=== PATIENT | male | born 1965 | race Caucasian/White ===

== ENCOUNTER 2018-12-25 12:56 | Emergency (ER) | payer OTHER ==
[~2018-12-25] VITALS: Ht 182.9 cm; Wt 108.9 kg
--- NOTE | 2018-12-25 13:26 | PHYS DOC ---
Past History Past Medical History: Alcoholism, Bipolar, Depression, Hypertension, Hepatitis (C) Additional Past Medical Histor: DJD, Chronic back pain, PTSD Past Surgical History: Appendectomy Additional Past Surgical Histo: B knee, R shoulder, lumbar spine Smoking: Non-smoker Alcohol Use: Heavy Drug Use: None Adult General Chief Complaint Chief Complaint: NAUSEA/VOMITING/DIARRHEA HPI HPI Patient is a 53 year old male who presents with 5 days of intractable vomiting. He has not been able to keep food or drink down and attempts at eating or drinking triggers his vomiting. He typically consumes a pint a day of alcohol and stopped drinking the day before onset and attributes his current symptoms to alcohol withdrawal. He denies history of withdrawal seizures or hallucinations. Patient reports tremors, diaphoresis, and rapid heart rate for last few days which are slowly improving. He was hospitalized 2-3 weeks ago for similar symptoms associated with alcohol withdraw. He will binge drink for a few weeks at a time and then make an attempt to abstain for a week or so. Patient reports it has also been about a week since his last [place] dose of which he ran out of. He currently is scheduled for EGD on 12/31/18. [facility]. Review of Systems Review of Systems Constitutional: Denies fever or chills [] Eyes: Denies change in visual acuity, redness, or eye pain [] HENT: Denies nasal congestion or sore throat [] Respiratory: Denies cough or shortness of breath [] GI: Reports nausea and vomiting, denies abdominal pain [] : Denies dysuria or hematuria [] Musculoskeletal: Denies back pain or joint pain [] Integument: Denies rash or skin lesions [] Complete systems were reviewed and found to be within normal limits, except as documented in this note. Current Medications Current Medications Current Medications Medications (Trade) Dose Ordered Sig/Iain Start Time Stop Time Status Last Admin Dose Admin Famotidine (Pepcid Vial) 20 mg 1X ONCE 12/25/18 13:15 12/25/18 13:16 UNV Iohexol (Omnipaque 300 Mg/ml) 75 ml 1X ONCE 12/25/18 13:15 12/25/18 13:16 UNV Lorazepam (Ativan) 1 mg 1X ONCE 12/25/18 13:15 12/25/18 13:16 UNV Multivitamins/ Minerals 10 ml/ Folic Acid 1 mg/ Thiamine HCl 100 mg/Sodium Chloride 1,011.1 ml @ 1,000 mls/ hr 1X ONCE 12/25/18 13:15 12/25/18 14:15 UNV Ondansetron HCl (Zofran) 4 mg 1X ONCE 12/25/18 13:15 12/25/18 13:16 UNV Physical Exam Physical Exam Constitutional: Well developed, well nourished, diaphoretic, flushed in the face. [] HENT: Normocephalic, atraumatic, poor dentition, oropharynx dry. [] Eyes: EOMI, conjunctiva normal, no discharge. [] Neck: Normal range of motion, no tenderness, no JVD. [] Cardiovascular: Regular rhythm, tachycardic, no murmur [] Lungs & Thorax: Bilateral breath sounds clear to auscultation [] Abdomen: Soft, no tenderness Skin: Warm, dry, no rash. [] Extremities: No tenderness,moves all, no edema [] Neurologic: Alert and oriented X 3, normal motor function, normal sensory function, no focal deficits noted, tremors in hands [] Psychologic: Affect normal, judgement normal, mood normal. [] EKG EKG @1321 Sinus tachycardia at 113bpm, significant baseline artifact due to tremulousness worse to I, III, aVL and aVF, NO ST elevation Radiology/Procedures Radiology/Procedures PROCEDURE: CT ABD PELV W/ IV CONTRST ONLY CT of the abdomen and pelvis with contrast, 12/25/2018: HISTORY: Abdominal pain, nausea and vomiting Multidetector CT imaging was performed following an IV bolus injection of iodinated contrast material. No oral contrast material was administered for this study. The gallbladder is surgically absent. The liver is of lower than normal density suggesting fatty change. No hepatic mass or bile duct dilatation is evident. The pancreas is unremarkable. The spleen shows no abnormality. There is mild left renal cortical scarring. The kidneys show no evidence of obstruction or mass. No adrenal abnormality is detected. The abdominal aorta is unremarkable. No abdominal or pelvic adenopathy is seen. The prostate gland is at the upper limits of normal in size. Multiple colonic diverticula are present. These are most numerous in the sigmoid region. No paracolonic inflammatory process is seen. The bowel loops are not dilated. The appendix is not visualized. No dilated appendix or pericecal inflammatory process is seen. No free fluid or free air is evident in the abdomen or pelvis. A small fat-containing umbilical hernia is noted. Moderate multilevel degenerative change is present in the lower lumbar spine. IMPRESSION: 1. Moderate colonic diverticulosis. 2. Hepatic steatosis. 3. No acute abdominal or pelvic abnormality is detected. PQRS Compliance Statement: One or more of the following individualized dose reduction techniques were utilized for this examination: 1. Automated exposure control 2. Adjustment of the mA and/or kV according to patient size 3. Use of iterative reconstruction technique Electronically signed by: John Landrum MD (12/25/2018 2:18 PM) [facility] Course & Med Decision Making Course & Med Decision Making Pertinent Labs and Imaging studies reviewed. (See chart for details) Shobonier with pmh of ETOH abuse presents with HPI and physical exam concerning for ETOH withdrawal. Tremulousness noted. Symptomatic treatment provided. Labs obtained and posted to chart. Potassium replacement initiated. BUN/Creat elevated. IVF hydration given. CT abd/pelvis without acute process. Patient requiring admission for further evaluation and treatment. Patient requests transfer to [place] [facility]. [facility]. Discussed findings and plan with patient, who acknowledges understanding and agreement. Dragon Disclaimer Dragon Disclaimer This electronic medical record was generated, in whole or in part, using a voice recognition dictation system. Departure Departure: Impression: Primary Impression: Alcohol withdrawal Additional Impressions: Hypokalemia Acute renal insufficiency Disposition: 05 TRANSFER OTHER ([facility]) Condition: STABLE Referrals: PCP,NO (PCP) Problem Qualifiers Primary Impression: Alcohol withdrawal Complication of substance-induced condition: uncomplicated Qualified Codes: F10.230 - Alcohol dependence with withdrawal, uncomplicated DAVID BUSTAMANTE DO Dec 25, 2018 13:26
--- NOTE | 2018-12-25 13:26 | EKG ---
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
[2018-12-25] MEDS ORDERED: ONDANSETRON PF 4 MG/2 ML VIAL. IV ONE ×2 (13:30→14:15)
[2018-12-25] MEDS ORDERED: IOHEXOL 300 MG/ML 75 ML VIAL. IV ONE (13:30)
[2018-12-25] MEDS ORDERED: FAMOTIDINE 20 MG/2 ML VIAL IVP ONE (13:30)
[2018-12-25 13:42] LABS: BASO # 0.1 x10^3/uL (0.0-0.2); BASO % 1 % (0-3); EOS % 0 % (0-3); HEMATOCRIT 53.5 % (39.0-53.0); HEMOGLOBIN 18.2 g/dL (13.0-17.5); LYMPH % 12 % (24-48); MEAN CORPUSCULAR HEMOGLOBIN 32 pg (25-35); MEAN CORPUSCULAR HGB CONC 34 g/dL (31-37); MEAN CORPUSCULAR VOLUME 93 fL (79-100); MONO # 1.4 x10^3/uL (0.0-1.1); MONO % 17 % (0-9); NEUT # 5.9 x10^3uL (1.8-7.7); NEUT % 70 % (31-73); PLATELET COUNT 113 x10^3/uL (140-400); RED BLOOD COUNT 5.76 x10^6/uL (4.30-5.70); RED CELL DISTRIBUTION WIDTH 15.5 % (11.5-14.5); WHITE BLOOD COUNT 8.4 x10^3/uL (4.0-11.0)
[2018-12-25] MEDS ORDERED: MVI, ADULT NO.4 WITH VIT K 10 ML, FOLIC ACID SYRINGE for ER 1 MG, THIAMINE INJ 100 MG i... IV ONE ×4 (13:45)
[2018-12-25 14:04] LABS: ALBUMIN 4.4 g/dL (3.4-5.0); ALBUMIN/GLOBULIN RATIO 0.9 (1.0-1.7); CALCIUM 10.2 mg/dL (8.5-10.1); CREATININE 2.9 mg/dL (0.7-1.3); MAGNESIUM 2.4 mg/dL (1.8-2.4); TOTAL BILIRUBIN 2.3 mg/dL (0.2-1.0); TOTAL PROTEIN 9.4 g/dL (6.4-8.2)
[2018-12-25 14:07] LABS: POTASSIUM 2.5 mmol/L (3.5-5.1)
--- NOTE | 2018-12-25 14:21 | RAD ---
CT of the abdomen and pelvis with contrast, 12/25/2018: HISTORY: Abdominal pain, nausea and vomiting Multidetector CT imaging was performed following an IV bolus injection of iodinated contrast material. No oral contrast material was administered for this study. The gallbladder is surgically absent. The liver is of lower than normal density suggesting fatty change. No hepatic mass or bile duct dilatation is evident. The pancreas is unremarkable. The spleen shows no abnormality. There is mild left renal cortical scarring. The kidneys show no evidence of obstruction or mass. No adrenal abnormality is detected. The abdominal aorta is unremarkable. No abdominal or pelvic adenopathy is seen. The prostate gland is at the upper limits of normal in size. Multiple colonic diverticula are present. These are most numerous in the sigmoid region. No paracolonic inflammatory process is seen. The bowel loops are not dilated. The appendix is not visualized. No dilated appendix or pericecal inflammatory process is seen. No free fluid or free air is evident in the abdomen or pelvis. A small fat-containing umbilical hernia is noted. Moderate multilevel degenerative change is present in the lower lumbar spine. IMPRESSION: 1. Moderate colonic diverticulosis. 2. Hepatic steatosis. 3. No acute abdominal or pelvic abnormality is detected. PQRS Compliance Statement: One or more of the following individualized dose reduction techniques were utilized for this examination: 1. Automated exposure control 2. Adjustment of the mA and/or kV according to patient size 3. Use of iterative reconstruction technique Electronically signed by: John Landrum MD (12/25/2018 2:18 PM) [facility]
[2018-12-25] MEDS: POTASSIUM CHLORIDE 10MEQ 50 ML IV SCH ×2 (15:11→15:59)
[2018-12-25 15:45] VITALS: BP 126/105
== END 2018-12-25 16:45 | disposition short-term general hospital (02) ==
LOC: ER 12:56
DX: K57.30 Diverticulosis of large intestine without perforation or abscess without bleeding (principal); K76.0 Fatty (change of) liver, not elsewhere classified; R11.2 Nausea with vomiting, unspecified; F10.20 Alcohol dependence, uncomplicated; Y90.0 Blood alcohol level of less than 20 mg/100 ml
CPT/HCPCS: 36415; 74177; 80053; 80178; 82553; 83690; 83735; 84484; 85025; 85610; 85730; 93005; 96361; 96365; 96366; 96375; 96376; 99285; G0480; J2060; J2405; J3480; J3490; Q9967; J7030

== ENCOUNTER 2019-01-19 12:56 | Emergency (ER) | payer OTHER ==
[~2019-01-19] VITALS: Ht 182.9 cm; Wt 105.0 kg
[2019-01-19] MEDS ORDERED: ONDANSETRON PF 4 MG/2 ML VIAL. ONE (13:02)
[2019-01-19] MEDS ORDERED: THIAMINE 200 MG/2 ML VIAL. IV ONE (13:07)
[2019-01-19] MEDS ORDERED: MVI, ADULT NO.4 WITH VIT K 10 ML VIAL IV ONE (13:08)
[2019-01-19] MEDS ORDERED: FOLIC ACID 5 MG/ML SYRINGE for ER IV ONE (13:08)
[2019-01-19 13:30] LABS: BASO % 0 % (0-3); EOS % 0 % (0-3); HEMATOCRIT 52.9 % (39.0-53.0); HEMOGLOBIN 17.8 g/dL (13.0-17.5); LYMPH # 0.7 x10^3/uL (1.0-4.8); LYMPH % 7 % (24-48); MEAN CORPUSCULAR HEMOGLOBIN 32 pg (25-35); MEAN CORPUSCULAR HGB CONC 34 g/dL (31-37); MEAN CORPUSCULAR VOLUME 94 fL (79-100); MONO # 0.7 x10^3/uL (0.0-1.1); MONO % 7 % (0-9); NEUT # 8.4 x10^3uL (1.8-7.7); NEUT % 86 % (31-73); PLATELET COUNT 66 x10^3/uL (140-400); RED BLOOD COUNT 5.66 x10^6/uL (4.30-5.70); RED CELL DISTRIBUTION WIDTH 15.3 % (11.5-14.5); WHITE BLOOD COUNT 9.8 x10^3/uL (4.0-11.0)
[2019-01-19] MEDS ORDERED: ONDANSETRON PF 4 MG/2 ML VIAL. IV ONE (13:30)
[2019-01-19] MEDS ORDERED: FAMOTIDINE 20 MG/2 ML VIAL IVP ONE (13:30)
[2019-01-19] MEDS ORDERED: MVI, ADULT NO.4 WITH VIT K 10 ML, FOLIC ACID SYRINGE for ER 1 MG, THIAMINE INJ 100 MG i... IV SCH ×4 (13:30)
--- NOTE | 2019-01-19 13:36 | RAD ---
AP chest. HISTORY: Nausea and vomiting, dizziness AP view was taken of the chest. There is evidence of old surgery at the right shoulder. There is arthritis in both AC joints. Lungs are free of acute infiltrates. Heart is normal in size without heart failure. There is no effusion. IMPRESSION: 1. No acute infiltrates. Electronically signed by: Olayinka Thorne MD (01/19/2019 1:33 PM) [facility]
--- NOTE | 2019-01-19 13:39 | PHYS DOC ---
Past History Past Medical History: Alcoholism, Bipolar, Depression, Hypertension, Liver Disease, Other Additional Past Medical Histor: DJD, Chronic back pain, PTSD Past Surgical History: Cholecystectomy Additional Past Surgical Histo: B knee, R shoulder, lumbar spine Smoking: Non-smoker Alcohol Use: Heavy Drug Use: None Adult General Chief Complaint Chief Complaint: WITHDRAWL HPI HPI Patient is a 53 year old male who presents with complaint of dizziness, nausea, and vomiting. Patient states that his symptoms have been present over the past 2 days. Patient notes that he has history of heavy alcohol use. Patient states that he stopped drinking 2 days ago and started developing symptoms shortly after he stopped drinking alcohol. States he usually drinks approximately 1 pint of whiskey daily. Has had prior episodes of alcohol withdrawal requiring treatment in the hospital setting. States that he normally gets treatment at the [facility]. Patient brought by EMS who was diverted to [facility] from the [place] due to the patient having significant tachycardia. Denies chest pain currently. Does admit to feeling short of breath and feeling anxious. Review of Systems Review of Systems Constitutional: Denies fever or chills [] Eyes: Denies change in visual acuity, redness, or eye pain [] HENT: Denies nasal congestion or sore throat [] Respiratory: Shortness of breath[] Cardiovascular: Dizziness, denies chest pain[] GI: Denies abdominal pain, nausea, vomiting, bloody stools or diarrhea [] : Denies dysuria or hematuria [] Musculoskeletal: Denies back pain or joint pain [] Integument: Denies rash or skin lesions [] Neurologic: Denies headache, focal weakness or sensory changes [] All other systems were reviewed and found to be within normal limits, except as documented in this note. Current Medications Current Medications Current Medications Medications (Trade) Dose Ordered Sig/Iain Start Time Stop Time Status Last Admin Dose Admin Famotidine (Pepcid Vial) 20 mg 1X ONCE 01/19/19 13:30 01/19/19 13:31 01/19/19 13:10 20 MG Folic Acid (FOLIC ACID SYRINGE for ER) 5 mg STK-MED ONCE 01/19/19 13:08 01/19/19 13:09 DC Lorazepam (Ativan) 2 mg 1X ONCE 01/19/19 13:30 01/19/19 13:31 01/19/19 13:10 2 MG Multivitamins/ Minerals (Infuvite Adult) 10 ml STK-MED ONCE 01/19/19 13:08 01/19/19 13:09 DC Multivitamins/ Minerals 10 ml/ Folic Acid 1 mg/ Thiamine HCl 100 mg/Sodium Chloride 1,011.2 ml @ 1,000 mls/ hr Q1H 01/19/19 13:30 01/19/19 13:16 1,000 MLS/HR Ondansetron HCl (Zofran) 4 mg 1X ONCE 01/19/19 13:30 01/19/19 13:31 01/19/19 13:10 4 MG Thiamine HCl (Thiamine Vial) 200 mg STK-MED ONCE 01/19/19 13:07 01/19/19 13:08 DC Allergies Allergies Allergies Coded Allergies Type Severity Reaction Last Updated Verified latex Allergy Unknown 12/25/18 Yes Physical Exam Physical Exam Constitutional: Well developed, well nourished, appears anxious, cooperative. [] HENT: Normocephalic, atraumatic, bilateral external ears normal, oropharynx moist, no oral exudates, nose normal. [] Eyes: PERRLA, EOMI, conjunctiva normal, no discharge. [] Neck: Normal range of motion, no tenderness, supple, no stridor. [] Cardiovascular: Tachycardia, regular rhythm, no murmur [] Lungs & Thorax: Bilateral breath sounds clear to auscultation [] Abdomen: Bowel sounds normal, soft, no tenderness, no masses, no pulsatile masses. [] Skin: Warm, dry, no erythema, no rash. [] Back: No tenderness, no CVA tenderness. [] Extremities: No tenderness, no cyanosis, no clubbing, ROM intact, no edema. [] Neurologic: Alert and oriented X 3, normal motor function, normal sensory function, no focal deficits noted. [] Current Patient Data Vital Signs Vital Signs Date Time Temp Pulse Resp B/P (MAP) Pulse Ox O2 Delivery O2 Flow Rate FiO2 01/19/19 12:57 148 22 Room Air Lab Results Laboratory Tests Test 01/19/19 13:01 01/19/19 13:40 White Blood Count 9.8 x10^3/uL Red Blood Count 5.66 x10^6/uL Hemoglobin 17.8 g/dL Hematocrit 52.9 % Mean Corpuscular Volume 94 fL Mean Corpuscular Hemoglobin 32 pg Mean Corpuscular Hemoglobin Concent 34 g/dL Red Cell Distribution Width 15.3 % Platelet Count 66 x10^3/uL Neutrophils (%) (Auto) 86 % Lymphocytes (%) (Auto) 7 % Monocytes (%) (Auto) 7 % Eosinophils (%) (Auto) 0 % Basophils (%) (Auto) 0 % Neutrophils # (Auto) 8.4 x10^3uL Lymphocytes # (Auto) 0.7 x10^3/uL Monocytes # (Auto) 0.7 x10^3/uL Eosinophils # (Auto) 0.0 x10^3/uL Basophils # (Auto) 0.0 x10^3/uL Sodium Level 151 mmol/L Potassium Level 3.4 mmol/L Chloride Level 96 mmol/L Carbon Dioxide Level 22 mmol/L Anion Gap 33 Blood Urea Nitrogen 34 mg/dL Creatinine 3.6 mg/dL Estimated GFR (Cockcroft-Gault) 17.9 Glucose Level 151 mg/dL Calcium Level 11.7 mg/dL Magnesium Level 1.7 mg/dL Total Bilirubin 1.3 mg/dL Direct Bilirubin 0.5 mg/dL Aspartate Amino Transf (AST/SGOT) 134 U/L Alanine Aminotransferase (ALT/SGPT) 183 U/L Alkaline Phosphatase 98 U/L Total Protein 9.8 g/dL Albumin 4.9 g/dL Ethyl Alcohol Level < 10 mg/dL Prothrombin Time 10.0 SEC Prothromb Time International Ratio 1.0 Activated Partial Thromboplast Time 24 SEC Current Medications Medications (Trade) Dose Ordered Sig/Iain Route PRN Reason Start Time Stop Time Status Last Admin Dose Admin Ondansetron HCl (Zofran) 4 mg STK-MED ONCE .ROUTE 01/19/19 13:02 01/19/19 13:03 DC Lorazepam (Ativan) 2 mg STK-MED ONCE .ROUTE 01/19/19 13:02 01/19/19 13:03 DC Famotidine (Pepcid Vial) 20 mg 1X ONCE IVP 01/19/19 13:30 01/19/19 13:31 DC 01/19/19 13:10 Ondansetron HCl (Zofran) 4 mg 1X ONCE IV 01/19/19 13:30 01/19/19 13:31 DC 01/19/19 13:10 Lorazepam (Ativan) 2 mg 1X ONCE IV 01/19/19 13:30 01/19/19 13:31 DC 01/19/19 13:10 Multivitamins/ Minerals 10 ml/ Folic Acid 1 mg/ Thiamine HCl 100 mg/Sodium Chloride 1,011.2 ml @ 1,000 mls/ hr Q1H IV 01/19/19 13:30 01/19/19 13:30 DC 01/19/19 13:16 Thiamine HCl (Thiamine Vial) 200 mg STK-MED ONCE IV 01/19/19 13:07 01/19/19 13:08 DC Multivitamins/ Minerals (Infuvite Adult) 10 ml STK-MED ONCE IV 01/19/19 13:08 01/19/19 13:09 DC Folic Acid (FOLIC ACID SYRINGE for ER) 5 mg STK-MED ONCE IV 01/19/19 13:08 01/19/19 13:09 DC Diltiazem HCl (Cardizem Iv Push) 10 mg 1X ONCE IVP 01/19/19 14:15 01/19/19 14:16 DC EKG EKG Interpreted by me: Heart rate 151, A. fib with RVR, no acute ST elevations or depressions[] Radiology/Procedures Radiology/[place] [address] IMAGING REPORT Signed PATIENT: CATHERINE JON ACCOUNT: [id number] : 1965 LOCATION: ER AGE: 53 SEX: M EXAM STATUS: REG ER ORD. PHYSICIAN: BYRON KING MD REASON: Nausea, vomiting, dizziness PROCEDURE: PORTABLE CHEST 1V AP chest. HISTORY: Nausea and vomiting, dizziness AP view was taken of the chest. There is evidence of old surgery at the right shoulder. There is arthritis in both AC joints. Lungs are free of acute infiltrates. Heart is normal in size without heart failure. There is no effusion. IMPRESSION: 1. No acute infiltrates. Electronically signed by: Olayinka Thorne MD (01/19/2019 1:33 PM) [facility] DICTATED AND SIGNED BY: OLAYINKA THORNE MD DATE: 01/19/19 9201 CC: BYRON KING MD; PCP,NO ~ [] Course & Med Decision Making Course & Med Decision Making Pertinent Labs and Imaging studies reviewed. (See chart for details) Patient was started on IV fluids including banana bag and was also administered Zofran and IV lorazepam. Patient lab work shows that he is significantly volume depleted. Patient also appears to have worsening renal failure compared to previous lab work. Given patient has no previous history of chronic renal failure, this will need to be evaluated further by specialist care. Patient also hypotensive at this time, thus cardiac medications have been held to improve hemodynamic stability throughout IV fluids. Patient's condition is medically complex and I feel it is necessary the patient be transferred to a facility that can provide a higher level of care than what available at [facility]. I contacted Dr. Gould, hospitalist, at [facility] who agreed to accept care for transfer.[] Dragon Disclaimer Dragon Disclaimer This electronic medical record was generated, in whole or in part, using a voice recognition dictation system. Departure Departure: Impression: Primary Impression: Atrial fibrillation with RVR Additional Impressions: Hemodynamic instability Alcohol withdrawal Acute renal failure Disposition: 02 XFER SHT-TRM HOSP Condition: GUARDED Referrals: PCP,NO (PCP) Problem Qualifiers Additional Impressions: Alcohol withdrawal Complication of substance-induced condition: with unspecified complication Qualified Codes: F10.239 - Alcohol dependence with withdrawal, unspecified Acute renal failure Acute renal failure type: unspecified Qualified Codes: N17.9 - Acute kidney failure, unspecified BYRON KING MD Jan 19, 2019 13:39
[2019-01-19 13:43] LABS: ALBUMIN 4.9 g/dL (3.4-5.0); CALCIUM 11.7 mg/dL (8.5-10.1); CREATININE 3.6 mg/dL (0.7-1.3); DIRECT BILIRUBIN 0.5 mg/dL (0.0-0.2); GFR 17.9; MAGNESIUM 1.7 mg/dL (1.8-2.4); POTASSIUM 3.4 mmol/L (3.5-5.1); TOTAL BILIRUBIN 1.3 mg/dL (0.2-1.0); TOTAL PROTEIN 9.8 g/dL (6.4-8.2)
[2019-01-19] MEDS: dilTIAZem 25 MG/5 ML VIAL IVP ONE ×2 (14:15→15:21)
[2019-01-19] MEDS ORDERED: IV NORMAL SALINE 1,000ML 1,000 ML IV ONE (15:00)
[2019-01-19 15:34] VITALS: BP 127/67
--- NOTE | 2019-01-19 18:03 | EKG ---
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
--- NOTE | 2019-01-19 18:03 | EKG ---
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
== END 2019-01-19 15:35 | disposition short-term general hospital (02) ==
LOC: ER 12:56
DX: I48.2 Chronic atrial fibrillation (principal); F10.239 Alcohol dependence with withdrawal, unspecified; N17.9 Acute kidney failure, unspecified; F31.9 Bipolar disorder, unspecified; I10 Essential (primary) hypertension; G89.29 Other chronic pain; M54.89 Other dorsalgia; F43.10 Post-traumatic stress disorder, unspecified; Z91.040 Latex allergy status; Y90.0 Blood alcohol level of less than 20 mg/100 ml
CPT/HCPCS: 36415; 71045; 80048; 80076; 83735; 85025; 85610; 85730; 93005; 96365; 96366; 96375; 99285; G0480; J2060; J2405; J3490; 99284-25; J7030